=== PATIENT | female | born 1950 | race Caucasian/White ===

== ENCOUNTER 2017-01-26 09:27 | Outpatient (CLI) | payer MEDICARE, OTHER ==
[2013-11-03 14:47] VITALS: BP 103/57
[2017-01-26 10:13] LABS: eGFR (African) > 60; eGFR (Non-African) > 60
== END 2017-01-26 09:30 ==
LOC: LAB 09:27
PROVIDERS: ATTEND Family Medicine
DX: E11.9 Type 2 diabetes mellitus without complications (principal); I10 Essential (primary) hypertension
CPT/HCPCS: 36415; 80053; 83036

== ENCOUNTER 2017-02-05 07:50 | Outpatient (CLI) | payer MEDICARE, OTHER ==
[2013-11-03 14:47] VITALS: BP 103/57
--- NOTE | 2017-02-05 09:03 | Diagnostic Imaging Report ---
[facility] [address] [facility].. [address] [id number] Report Submission Date: February 05, 2017 8:50:49 AM CDT Patient Study Name: FER PALOMINO Date: February 05, 2017 8:10:03 AM CDT Modality Type: MR Gender: F Description: MRI LUMBAR SPINE W/O CONTRAST : 50 Institution: [facility] Physician: STEVEN MADRIGAL MRI lumbar spine without contrast. History: Lower back pain for 4 years. Technique: Multiplanar multisequence images of the lumbar spine were obtained without the use of intravenous contrast according to standard protocol. Findings: The lumbar spine is in the normal anatomic alignment. Vertebral bodies are of normal height without compression fractures. The bone marrow demonstrates normal signal intensity on all sequences. The conus medullaris is at the level of L1 and the distal spinal cord signal intensity is normal. There is mild intervertebral disc space narrowing at L4-L5. Annular tears are not identified. No soft tissue abnormality is identified. The aorta is normal. Axial images: L1-L2: The disc is normal in configuration. There is no facet arthropathy. There is no neural foraminal narrowing. There is no central canal stenosis. L2-L3: There is minimal posterior disc bulging noted . There is no facet arthropathy. There is no neural foraminal narrowing. There is no central canal stenosis. L3-L4: Minimal posterior disc bulging is noted. There is mild facet arthropathy. There is no neural foraminal narrowing. There is no central canal stenosis. L4-L5: Minimal posterior disc bulging is present with more prominent facet arthropathy and hypertrophy and ligamentum flavum which results in mild central canal stenosis and slight narrowing of the neural foramina tip of the bilaterally . L5-S1: The disc is normal in configuration. There is no facet arthropathy. There is no neural foraminal narrowing. There is no central canal stenosis. Impression: 1. Mild lumbar spondylosis most prominent at L4/L5 with minimal posterior disc bulging, prominent facet arthropathy and hypertrophy of the ligamentum flavum , resulting in mild central canal stenosis and bilateral neural foraminal narrowing. Electronically signed on February 05, 2017 8:50:49 AM CDT by: Brain CAGLE
== END 2017-02-05 07:55 | disposition home or self-care (01) ==
LOC: RAD 07:50
PROVIDERS: ATTEND Family Medicine
DX: M54.41 Lumbago with sciatica, right side (principal)
CPT/HCPCS: 72148

== ENCOUNTER 2017-07-03 14:17 | Outpatient (CLI) | payer MEDICARE, OTHER ==
[2013-11-03 14:47] VITALS: BP 103/57
[2017-07-03 15:06] LABS: eGFR (African) > 60; eGFR (Non-African) > 60
== END 2017-07-03 14:20 ==
LOC: LAB 14:17
PROVIDERS: ATTEND Family Medicine
DX: E11.9 Type 2 diabetes mellitus without complications (principal)
CPT/HCPCS: 36415; 80053; 80061; 82043; 83036

== ENCOUNTER 2018-07-02 10:46 | Outpatient (CLI) | payer MEDICARE, OTHER ==
[2013-11-03 14:47] VITALS: BP 103/57
[2018-07-02 11:51] LABS: eGFR (Non-African) > 60
== END 2018-07-02 10:48 ==
LOC: LAB 10:46
PROVIDERS: ATTEND Family Medicine
DX: E11.9 Type 2 diabetes mellitus without complications (principal); I10 Essential (primary) hypertension
CPT/HCPCS: 36415; 80053; 80061; 83036

== ENCOUNTER 2019-07-08 09:17 | Outpatient (CLI) | payer MEDICARE, OTHER ==
[2013-11-03 14:47] VITALS: BP 103/57
[2019-07-18 08:35] LABS: A1C 6.8 % (<5.7); eGFR (Non-African) > 60
== END 2019-07-08 09:30 ==
LOC: LAB 09:17
PROVIDERS: ATTEND Family Medicine
DX: E11.9 Type 2 diabetes mellitus without complications (principal)
CPT/HCPCS: 36415; 80053; 83036